=== PATIENT | female | born 1945 | race Caucasian/White ===

== ENCOUNTER 2020-02-07 08:02 | Day surgery (SDC) | payer MEDICARE, OTHER ==
[2020-02-07] MEDS ORDERED: Propofol 200 MG/20 ML SDV IV ONE (08:03)
[2020-02-07] MEDS ORDERED: Lidocaine 1% PF 2 ML SDV IV ONE (08:03)
[2020-02-07] MEDS ORDERED: Sodium Chloride 0.9% 10 ML Syringe FLUSH PRN (08:15)
[2020-02-07] MEDS ORDERED: Lactated Ringers 1,000 ML IV SCH (08:15)
--- NOTE | 2020-02-07 09:47 | PCM.OPNOTE ---
- General Post-Op/Procedure Note Date of Surgery/Procedure: 02/07/20 Operative Procedure(s): c scope with hot loop snare biopsy Findings: ascending colon polyp x2 0.5 cm and 1.5 cm Pre Op Diagnosis: +cologuard Post-Op Diagnosis: ascending colon polyp x2 0.5 cm and 1.5 cm Anesthesia Technique: [facility] [place] Primary Surgeon: Franck Campoverde Anesthesia Provider: Naveen Diaz Pathology: ascending colon polyp x2 0.5 cm and 1.5 cm Complications: None Condition: Good Free Text/Narrative:: see dictation
[2020-02-07 10:33] VITALS: BP 124/63; PULSE 77
--- NOTE | 2020-02-07 13:54 | OR ---
DATE OF OPERATION: 02/07/2020 SURGEON: Franck Campoverde MD PROCEDURE PERFORMED: Colonoscopy with hot loop snare biopsy. PREOPERATIVE DIAGNOSIS: Positive Cologuard test. POSTOPERATIVE DIAGNOSIS: Polyps x2 to the ascending colon, 5 mm and 1.5 cm. INDICATIONS FOR PROCEDURE: This is a 74-year-old white female, who recently underwent a Cologuard test, which came back as positive. As a result, she was offered and accepted a colonoscopy. DESCRIPTION OF PROCEDURE: After an excellent IV sedation was administered, digital rectal exam was performed. No marked abnormality was noted. The flexible colonoscope was inserted and advanced to the cecum. The prep was excellent. The following findings were noted: In the ascending colon, in the area of the cecum as well as 2 cm distal to this, there were 2 polyps, one in the cecum was approximately 5 mm in diameter. This was biopsied with a hot loop snare and submitted. The other polyp was also biopsied and retrieved with the [employer]. The scope was then slowly withdrawn, and the following findings were noted: The remainder of the ascending colon was unremarkable. The transverse colon was unremarkable. Descending colon was unremarkable. The sigmoid and rectum were unremarkable. The patient tolerated the procedure well. We will be sending the result via the letter. /[id number] /MODL
== END 2020-02-07 11:00 | disposition home or self-care (01) ==
LOC: FB.SDS 08:02
PROVIDERS: ATTEND Surgery
DX: D12.0 Benign neoplasm of cecum (principal); D12.2 Benign neoplasm of ascending colon; E78.5 Hyperlipidemia, unspecified; G20 Parkinson's disease; Z79.899 Other long term (current) drug therapy
CPT/HCPCS: 00811; 45385; 88305; J2001; J2704; J7120